=== PATIENT | female | born 1995 | race Caucasian/White ===

== ENCOUNTER → 2021-02-03 | Outpatient (CLI) | payer BC ==
[~2021-02-03] MED LIST: BCP; MINO100C2 PO; ONDA8TAB13 PO; SULF-222 PO; SULF1TAB7 PO
--- NOTE | 2021-02-03 18:25 | Diagnostic Imaging Report ---
INDICATION: Back pain. EXAMINATION: Three views of the lumbar spine were obtained. FINDINGS: The alignment is normal. The vertebral body heights are well-maintained. There is no spondylolysis or spondylolisthesis. No fracture is identified. IMPRESSION: Unremarkable three-view lumbar spine series. Dictated by: Dictated on workstation # [id number]
== END ==
LOC: RAD FS 18:06
PROVIDERS: ATTEND Nurse Practitioner Family
DX: M54.42 Lumbago with sciatica, left side (principal)
CPT/HCPCS: 72100